=== PATIENT | male | born 1950 | race African-American/Black ===

== ENCOUNTER 2024-04-30 12:44 | Emergency (ER) | payer BC, MEDICAID ==
[~2024-04-30] VITALS: Ht 175.3 cm; Wt 79.0 kg
[~2024-04-30 12:44] MED LIST: ASPI-1073 PO; BRIM.2 BOTHEYE; LEVO137T2 PO; MELO-104 PO; METH-773 PO; PRAV20TA57 PO; TAMS0.4C31 PO; VENL-180 PO
[2024-04-30 12:47] VITALS: O2SAT 98
[2024-04-30 13:27] LABS: BASOPHILS % 0.7 % (0.0-2.0); HEMATOCRIT. 38.9 % (42.0-52.0); HEMOGLOBIN. 13.6 g/dL (14.0-18.0); MEAN CORPUSCULAR HGB CONC 34.9 g/dL (31.0-37.0); MEAN CORPUSCULAR VOLUME 91.7 fL (80.0-94.0); MEAN PLATELET VOLUME 7.6 fl (7.4-10.4); MONOCYTES % 8.7 % (2.0-8.0); NEUTROPHILS % 75.6 % (40.0-76.0); PLATELET 198 x1000/uL (130-400); RED BLOOD CELL COUNT 4.25 mill/uL (4.7-6.1); RED CELL DISTRIBUTION WIDTH 13.6 % (11.6-14.6); WHITE BLOOD COUNT 5.1 x1000/uL (4.5-11.0)
[2024-04-30 13:34] LABS: CHLORIDE 108 mEq/L (98-107); POTASSIUM 4.6 mEq/L (3.5-5.1); SODIUM 137 mEq/L (136-145)
[2024-04-30 13:35] LABS: CALCIUM 9.7 mg/dL (8.7-10.4); CARBON DIOXIDE 21 mEq/L (21-32)
[2024-04-30 13:40] LABS: CREATININE 1.6 mg/dL (0.6-1.3); GLUCOSE 111 mg/dL (70-105); UREA NITROGEN BLOOD 27 mg/dL (9-23)
[2024-04-30 13:44] LABS: PROTHROMBIN TIME 11.4 sec (9.6-11.0)
[2024-04-30 13:52] LABS: TROPONIN I HIGH SENSITIVITY < 4 ng/L (3.0-53)
[2024-04-30] MEDS: LIDOCAINE HCL/PF 1% 10 MG/ML 5ML VIAL INFIL ONE (14:00)
[2024-04-30] MEDS: TETANUS, DIPHTHERIA, PERTUSSIS VAC/PF 0.5ML (>10YR OLD) IM ONE (14:22)
[2024-04-30 15:10] VITALS: BP 134/62; PULSE 67; RESP 14; TEMP 37.00296; O2SAT 98
[2024-04-30] MEDS ORDERED: CEPH500C2 MT (15:13)
== END 2024-04-30 15:25 | disposition home or self-care (01) ==
LOC: ER 12:59
DX: S63.252A Unspecified dislocation of right middle finger, initial encounter (principal); R55 Syncope and collapse; S01.81XA Laceration without foreign body of other part of head, initial encounter; I10 Essential (primary) hypertension; E78.00 Pure hypercholesterolemia, unspecified; Z79.899 Other long term (current) drug therapy; W01.0XXA Fall on same level from slipping, tripping and stumbling without subsequent striking against object, initial encounter; Y93.89 Activity, other specified; Y92.89 Other specified places as the place of occurrence of the external cause; Y99.8 Other external cause status
CPT/HCPCS: 99285; 26770; 70450; 71045; 80048; 85025; 85610; 84484; 36415; 73140; 93005; 12013; J3490